=== PATIENT | male | born 1990 | race Two or more races ===

== ENCOUNTER 2024-06-12 18:17 | Emergency (ER) | payer OTHER ==
[2024-06-12] MEDS: Ketorolac 60 MG/2 ML SDV IM ONE (21:15)
== END 2024-06-12 22:12 | disposition home or self-care (01) ==
LOC: JD.ED 18:17
DX: M79.621 Pain in right upper arm (principal); M79.622 Pain in left upper arm
CPT/HCPCS: 73080; 96372; 99283; J1885

== ENCOUNTER 2024-06-21 20:50 | Emergency (ER) | payer SELFPAY ==
[2024-06-21 22:00] LABS: BASOPHILS ABSOLUTE AUTO 0.1 K/mm3 (0.0-0.2); BASOPHILS PERCENT AUTO 0.6 % (0.0-1.0); EOSINOPHILS ABSOLUTE AUTO 0.2 K/mm3 (0.0-0.4); EOSINOPHILS PERCENT AUTO 2.6 % (0.0-6.0); HEMATOCRIT 43.2 % (42.0-52.0); HEMOGLOBIN 14.5 gm/dl (14.0-18.0); IMMATURE GRAN ABSOLUTE AUTO 0.03 K/mm3 (0.00-0.05); IMMATURE GRAN PERCENT AUTO 0.4 % (0.0-0.4); LYMPHOCYTES ABSOLUTE AUTO 2.5 K/mm3 (1.0-4.8); LYMPHOCYTES PERCENT AUTO 30.1 % (24.0-44.0); MEAN CORPUSCULAR HEMOGLOBIN 28.4 pg (28.0-32.0); MEAN CORPUSCULAR HGB CONC 33.6 g/dl (32.0-36.0); MEAN CORPUSCULAR VOLUME 84.7 fl (83.0-99.0); MEAN PLATELET VOLUME 9.1 fl (9.4-12.4); MONOCYTES ABSOLUTE AUTO 0.6 K/mm3 (0.0-0.8); MONOCYTES PERCENT AUTO 7.5 % (0.0-8.0); NEUTROPHILS ABSOLUTE AUTO 4.8 K/mm3 (1.8-7.7); NEUTROPHILS PERCENT AUTO 58.8 % (41.0-71.0); PLATELET COUNT,PLT 372 K/mm3 (150-400); WHITE BLOOD CELL COUNT,WBC 8.13 K/mm3 (3.9-11.3)
[2024-06-21] MEDS: Benzocaine/Menthol 20%-0.5% Spray 78 GM Cannister TOP PRN (22:15)
[2024-06-21 22:24] LABS: LACTIC ACID 0.6 mmol/L (0.4-2.0)
[2024-06-21] MEDS: Ketorolac 60 MG/2 ML SDV IM ONE (22:34)
[2024-06-21 23:00] LABS: BODY FLUID TYPE SYNOVIAL FLUID; GLUCOSE,BODY FLUID 63 mg/dL
== END 2024-06-21 23:01 | disposition home or self-care (01) ==
LOC: JD.ED 20:50
DX: M25.422 Effusion, left elbow (principal); M25.022 Hemarthrosis, left elbow; W22.8XXA Striking against or struck by other objects, initial encounter
CPT/HCPCS: 20605; 36415; 73080; 82945; 83605; 85025; 86140; 87070; 87075; 87205; 96372; 99283; J1885

== ENCOUNTER 2024-06-25 14:37 | Emergency (ER) | payer OTHER | END 2024-06-25 16:46 | disposition home or self-care (01) | LOC: JD.ED 14:37 | DX: S50.02XA Contusion of left elbow, initial encounter (principal); V89.2XXA Person injured in unspecified motor-vehicle accident, traffic, initial encounter | CPT/HCPCS: 99282; 99283 ==